=== PATIENT | male | born 1950 ===

== ENCOUNTER 2022-10-13 05:05 | Day surgery (SDC) | payer OTHER ==
[~2022-10-13] VITALS: Ht 162.6 cm; Wt 72.6 kg
[~2022-10-13 05:05] MED LIST: B12 ACTIVE1000 MCG PO; COZAAR25 MG PO; D3 + K2 DOTS 11 EACH PO; JANUMET 50-5001 EACH PO; ROSUVASTATIN CAL5 MG PO
== END 2022-10-13 14:25 | disposition home or self-care (01) ==
LOC: CIR.AMB 05:05
PROVIDERS: ATTEND Surgery
DX: K40.20 Bilateral inguinal hernia, without obstruction or gangrene, not specified as recurrent (principal); D17.6 Benign lipomatous neoplasm of spermatic cord; Z20.822 Contact with and (suspected) exposure to COVID-19; I10 Essential (primary) hypertension; E78.5 Hyperlipidemia, unspecified; E11.9 Type 2 diabetes mellitus without complications
CPT/HCPCS: 49650; C1781